=== PATIENT | female | born 1980 ===

== ENCOUNTER 2018-12-21 17:20 | Emergency (ER) | payer OTHER, SELFPAY ==
[2018-12-21 17:23] VITALS: BP 134/84; PULSE 97; RESP 16; TEMP 36.7; O2SAT 97
--- NOTE | 2018-12-21 17:28 | DI.RAD.S_ITS ---
PROCEDURE: XR KNEE LT 3V INDICATIONS: pain TECHNIQUE: 3 views of the knee were acquired. COMPARISON: None. FINDINGS: Bones: No fractures or dislocations. Tricompartmental osteoarthritis of the left knee. No suspicious bony lesions. Soft tissues: Moderate-sized joint effusion. No suspicious soft tissue calcifications. IMPRESSION: Tricompartmental osteoarthritis of the left knee with moderate size joint effusion. No acute fracture seen. Dictated by: Clifton Kim M.D. on 12/21/2018 at 18:58 Approved by: Clifton Kim M.D. on 12/21/2018 at 19:00
[2018-12-21 19:45] VITALS: BP 112/70; PULSE 67; RESP 17; O2SAT 100
--- NOTE | 2018-12-21 20:07 | ED_ITS ---
HPI - Extremity Injury (Lower) <FLO Shepherd - Last Filed: 12/21/18 21:48> General Chief Complaint: Extremity Injury, Lower Stated Complaint: Fall on ice, hurt L knee Time Seen by Provider: 12/21/18 18:23 Source: patient Mode of arrival: ambulatory Limitations: no limitations History of Present Illness HPI Narrative: Healthy 38-year-old female that is a nonsmoker for complaint of pain to her left knee. She states that she was picking up the kids earlier this afternoon when she slipped on the ice causing her to twist her knee as she fell. No known drug trauma to the knee itself. She reports increased pain with movement of the knee and ambulation. she reports increased pain more to the medial aspect of the left knee. She reports she was ambulatory into the emergency room although it was painful. She denies any head injury. No neck pain. No other concerns or complaints at this timeframe. MD complaint: knee injury Related Data Previous Rx's Medication Instructions Recorded nitrofurantoin monohyd/m-cryst 100 mg PO Q12H #14 bot 05/01/17 [Macrobid] Allergies Allergy/AdvReac Type Severity Reaction Status Date / Time amoxicillin [From Augmentin] Allergy Intermediate HIVES Unverified 02/08/18 11:54 aspartame Allergy Intermediate RASH/GI Unverified 02/08/18 11:54 ISSUES clavulanic acid Allergy Intermediate HIVES Unverified 02/08/18 11:54 [From Augmentin] Review of Systems <FLO Shepherd - Last Filed: 12/21/18 21:48> Constitutional Denies chills, Denies fever(s), Denies lethargy and Denies weakness Cardiovascular Denies chest pain, Denies irregular heart rhythm, Denies lightheadedness, Denies palpitations, Denies dyspnea, Denies dyspnea on exertion and Denies orthopnea Respiratory Denies cough, Denies dyspnea, Denies dyspnea on exertion and Denies wheezing Gastrointestinal Gastrointestinal: Denies abdominal pain, Denies change in bowel habits, Denies diarrhea, Denies nausea and Denies vomiting Genitourinary Denies hematuria, Denies flank pain, Denies urinary incontinence and Denies urinary urgency Musculoskeletal Comments: Left knee pain Integumentary/Breasts Denies pruritus, Denies erythema, Denies rash and Denies wounds Neurologic Denies confusion and Denies weakness Psychiatric Denies anxiety, Denies confusion, Denies depression, Denies homicidal ideation and Denies suicidal ideation Endocrine Denies palpitations Allergic/Immunologic Denies wheezing PFSH <FLO Shepherd - Last Filed: 12/21/18 21:48> Surgical History History of third molar tooth extraction Status post myringotomy with insertion of tube Social History Smoking Status: Never smoker Social History Smoking Status: Never smoker Exam <FLO Shepherd - Last Filed: 12/21/18 21:48> Initial Vital Signs Initial Vital Signs: Vital Signs Temperature 98.1 F 12/21/18 17:23 Pulse Rate 97 H 12/21/18 17:23 Respiratory Rate 16 12/21/18 17:23 Blood Pressure 134/84 12/21/18 17:23 Pulse Oximetry 97 12/21/18 17:23 Const General: cooperative and well developed Nutritional Appearance: well nourished Orientation: alert, awake, oriented x3 and not confused HENMT Mouth: oral mucosae normal and moist mucous membranes Eyes Conjunctivae: conjunctivae normal Sclera: sclerae normal Pupils: PERRL EOM: EOM intact bilaterally Resp Effort & Inspection: normal respiratory effort, able to speak in complete sentences, no respiratory distress and no use of accessory muscles Auscultation: clear to auscultation bilaterally, no rales, no rhonchi and no wheezes Cardio Rate: regular rate Rhythm: regular rhythm Heart Sounds: no click, no gallops, no murmurs and no rubs Pulses: normal peripheral pulses Skin General: no rashes or lesions noted, No jaundice and No petechiae Neuro General: alert, oriented x3, gait normal and no focal motor deficits Speech: speech normal Extrem Other: left knee with no significant signs of trauma. No ecchymosis. No swelling. Negative anterior-posterior drawer sign. Varus and valgus stress test shows some give to the medial aspect of the knee suggestive of MCL injury. distal sensation is intact. Distal range of motion is intact. Distal pulses are intact. <Lucia Salvador DO - Last Filed: 12/22/18 04:10> Initial Vital Signs Initial Vital Signs: Vital Signs Temperature 98.1 F 12/21/18 17:23 Pulse Rate 97 H 12/21/18 17:23 Respiratory Rate 16 12/21/18 17:23 Blood Pressure 134/84 12/21/18 17:23 Pulse Oximetry 97 12/21/18 17:23 Course <FLO Shepherd - Last Filed: 12/21/18 21:48> Orders Ordered: ED Orders 12/21/18 17:28 XR knee LT 3V Stat Vital Signs - 8 hr 12/21/18 17:23 12/21/18 19:45 Temperature 98.1 F Pulse Rate 97 H 67 Respiratory Rate 16 17 Blood Pressure 134/84 Blood Pressure [Left Arm] 112/70 Pulse Oximetry 97 100 <Lucia Salvador DO - Last Filed: 12/22/18 04:10> Orders Ordered: ED Orders 12/21/18 17:28 XR knee LT 3V Stat Vital Signs - 8 hr 12/21/18 17:23 12/21/18 19:45 Temperature 98.1 F Pulse Rate 97 H 67 Respiratory Rate 16 17 Blood Pressure 134/84 Blood Pressure [Left Arm] 112/70 Pulse Oximetry 97 100 MDM - Extremity Injury (Lower) <FLO Shepherd - Last Filed: 12/21/18 21:48> Imaging Data knee: Radiologist's impression: [place] [address] XRay Report Signed Patient: Francine Centeno LMR#: [id number] : 1980Acct:[id number] Age/Sex: 38 / FDate of Service: 12/21/18 Loc: ED Accession Number: [id number] Procedure: XR knee LT 3V Ordering Provider: Dimitrios Rodrigues D.O. PROCEDURE: XR KNEE LT 3V INDICATIONS: pain TECHNIQUE: 3 views of the knee were acquired. COMPARISON: None. FINDINGS: Bones: No fractures or dislocations. Tricompartmental osteoarthritis of the left knee. No suspicious bony lesions. Soft tissues: Moderate-sized joint effusion. No suspicious soft tissue calcifications. IMPRESSION: Tricompartmental osteoarthritis of the left knee with moderate size joint effusion. No acute fracture seen. Dictated by: Clifton Kim M.D. on 12/21/2018 at 18:58 Approved by: Clifton Kim M.D. on 12/21/2018 at 19:00 [facility] Narrative Medical decision making narrative: x-ray the left knee was obtained was negative for any fractures or dislocations. Will treat as a sprain however on exam some laxity was appreciated to the MCL on varus and valgus stress test. She is placed in knee immobilizer for comfort and support. Crutches for nonweightbearing. She is instructed to follow up with primary care provider next week for re-evaluation. Use [id number] Tylenol or Motrin as needed for any discomfort. Ice and elevation help with any swelling. May need to have MRI for further evaluation of pain does not resolve. Discharge Plan Departure Patient Disposition: Home Clinical Impression: Left knee sprain Qualifiers: Encounter type: initial encounter Involved ligament of knee: medial collateral ligament Qualified Code(s): S83.412A - Sprain of medial collateral ligament of left knee, initial encounter Discharge Date/Time: 12/21/18 20:35 Interventions: ED Discharge Assessment Last Done: 12/21/18 20:35 Instructions: DI for Knee Sprain Activity Restrictions/Additional Instructions: x-ray the left knee was obtained and was negative for any fractures or dislocations. Signs and symptoms presents as a sprain to the left knee. You are placed in a knee immobilizer for comfort and support along with crutches for nonweightbearing. Follow up with primary care provider next week for re- evaluation. Use [id number] Tylenol or Motrin as needed for any discomfort. Ice and elevation help with any swelling. If symptoms do not resolve may need to have MRI for further evaluation of the knee. for any worsening symptoms return to the emergency room. Prescriptions: No Action nitrofurantoin monohyd/m-cryst [Macrobid] 100 MG capsule 100 mg PO Q12H Qty: 14 RF: 0 Referrals: Patti Mendez MD [Primary Care Provider] - <Lucia Salvador DO - Last Filed: 12/22/18 04:10> Cosign ED Attending Cosarabellaature Attestation: I was immediately available in the department for consultation. This documentation has been reviewed and I agree with assessment and plan. Supervised by Lucia Salvador DO
== END 2018-12-21 20:35 | disposition home or self-care (01) ==
PROVIDERS: Emergency Provider Nurse Practitioner Family; PCP Obstetrics & Gynecology
DX: S83.412A Sprain of medial collateral ligament of left knee, initial encounter (principal); W01.0XXA Fall on same level from slipping, tripping and stumbling without subsequent striking against object, initial encounter
CPT/HCPCS: 73562; 99283

== ENCOUNTER 2019-12-10 06:33 | Emergency (ER) | payer OTHER, SELFPAY ==
[2019-12-10 06:43] VITALS: BP 132/80; PULSE 74; RESP 18; TEMP 36.8; O2SAT 100; BMI 29.1
--- NOTE | 2019-12-10 07:15 | ED_ITS ---
HPI - General Adult General Stated complaint: heart issues Time Seen by Provider: 12/10/19 06:54 Source: patient Mode of arrival: Ambulatory Limitations: no limitations History of Present Illness HPI narrative: 39-year-old otherwise healthy female here for evaluation of several weeks of palpitations. She has talk with her primary provider about this. She has an appointment with Cardiology coming up in the next 7-10 days for this issue. She was told by her primary provider that if the symptoms of her came back she should come to the emergency department. States that last evening she had more the events. States they all last less than 1 minute. No chest pain. No shortness of breath. Has not passed out. Has not tried anything for symptoms prior to Related Data Previous Rx's Medication Instructions Recorded nitrofurantoin monohyd/m-cryst 100 mg PO Q12H #14 bot 05/01/17 [Macrobid] Allergies Allergy/AdvReac Type Severity Reaction Status Date / Time amoxicillin [From Augmentin] Allergy Intermediate HIVES Unverified 02/08/18 11:54 aspartame Allergy Intermediate RASH/GI Unverified 02/08/18 11:54 ISSUES clavulanic acid Allergy Intermediate HIVES Unverified 02/08/18 11:54 [From Augmentin] Review of Systems Constitutional Constitutional: Denies fever(s) and Denies headache(s) ENT Ears, Nose, Mouth, and Throat: Denies headache(s) Cardiovascular Cardiovascular: Denies chest pain, Denies leg edema, Reports palpitations and Denies dyspnea Respiratory Respiratory: Denies cough and Denies dyspnea Gastrointestinal Gastrointestinal: Denies abdominal pain, Denies nausea and Denies vomiting Integumentary/Breasts Skin/Breast: Denies lesions and Denies rash Neurologic Neurologic: Denies behavioral changes and Denies headache(s) Psychiatric Psychiatric: Denies behavioral changes and Denies depression Endocrine Endocrine: Reports palpitations Patient History Medical History ACUTE BRONCHITIS, UNSPECIFIED (Inactive) Presence of intrauterine contraceptive device (07/08/15) Surgical History History of third molar tooth extraction Status post myringotomy with insertion of tube Social History Smoking Status: Never smoker Smoking Status: Never smoker alcohol intake frequency: 0-2 drinks per day Substance Use Type: does not use Exam Const General: cooperative, comfortable and well developed Limitations: mental status not altered HENMT Head: normal to inspection and normocephalic Resp Effort & Inspection: normal respiratory effort Auscultation: clear to auscultation bilaterally Cardio Rate: regular rate Rhythm: regular rhythm Pulses: radial pulses present Skin Lesions: no lesions Rashes: no rashes Neuro General: alert, awake and oriented x3 Cognition: normal cognition Speech: speech normal Extrem General: normal to inspection and capillary refill normal Psych Appearance: grossly normal and well kempt Course Orders Ordered: ED Orders 12/10/19 EKG-12 Lead Stat Medical Decision Making ECG Data Attestation: I personally reviewed and interpreted this ECG as follows: Prior ECG tracings: not available for review Interpretation: Sinus rhythm Ventricular rate is 67 Normal axis Normal QRS Normal QTC No ST T wave changes MDM Narrative Medical decision making narrative: Patient without symptoms here in the ER. EKG is unremarkable. Normal QRS, normal QTC. Unremarkable vital signs. Heart rate in the 70s. Did discuss the patient that she should talk with her primary doctor and also the trade show manager about how Holter monitor. We discussed return precautions and follow-up instructions. She expressed understanding and agreement plan. Discharge Plan Departure Patient Disposition: Home Clinical Impression: Palpitations Instructions: DI for Palpitations Activity Restrictions/Additional Instructions: Recommend that you talk with your primary doctor and also the trade show manager about a Holter monitor. Return to the emergency department for any chest pain, shortness of breath, palpitations that do not go way, passing out or any other new or worsening symptoms Prescriptions: No Action nitrofurantoin monohyd/m-cryst [Macrobid] 100 MG capsule 100 mg PO Q12H Qty: 14 RF: 0 Referrals: Luana Kunz ND [Primary Care Provider] -
[2019-12-10 07:56] VITALS: BP 140/79; PULSE 78; RESP 18; O2SAT 98
== END 2019-12-10 07:55 | disposition home or self-care (01) ==
PROVIDERS: Emergency Provider Emergency Medicine; PCP Naturopath
DX: R00.2 Palpitations (principal)
CPT/HCPCS: 93005; 99282; 99283

== ENCOUNTER → 2019-12-20 14:13 | Outpatient (CLI) | payer OTHER, SELFPAY ==
[2019-12-20 15:20] LABS: Add Manual Diff / Slide Review NO; Basophils Absolute Auto 0 /uL (0-100); Basophils Percent Auto 0.3 % (0-2); Eosinophils Absolute Auto 100 /uL (0-450); Eosinophils Percent Auto 1.2 % (2-4); Lymphocytes Absolute Auto 2900 /uL (1100-4500); Lymphocytes Percent Auto 33.1 % (25-40); Mean Corpuscular Hemoglobin 31.4 PG (26-34); Mean Corpuscular Volume 89.9 fL (80-100); Monocytes Absolute Auto 600 /uL (0-900); Monocytes Percent Auto 6.5 % (3-14); Neutrophils Absolute Auto 5100 /uL (1500-7000); Neutrophils Percent Auto 58.9 % (50-75); Platelet Count 305 X10^3/uL (150-400); Red Blood Cell Count 4.44 X10^6/uL (4.0-5.2); Red Cell Distribution Width 13.5 % (11.6-14.8); White Blood Cell Count 8.6 X10^3/uL (4.5-11.0)
[2019-12-20 15:31] LABS: Alanine Aminotransferase 12 IU/L (<35); Albumin Globulin Ratio 1.5 (1.0-2.8); Alkaline Phosphatase 66 U/L (38-126); Aspartate Aminotransferase 25 IU/L (14-36); BUN Creatinine Ratio 12.9 (6-22); Bilirubin Total 0.5 mg/dL (0.2-1.3); Blood Urea Nitrogen 9 mg/dL (7-17); Calcium 9.9 mg/dL (8.4-10.2); Carbon Dioxide 25 mmol/L (22-32); Chloride 104 mmol/L (98-107); Estimated Glomerular Filt Rate > 60.0 mL/min (>60); Globulin 3.4 g/dL (1.7-4.1); Glucose 112 mg/dL (70-100); HEMOLYSIS < 15 (0-50); Sodium 139 mmol/L (137-145); Total Protein 8.4 g/dL (6.3-8.2)
[2019-12-20 16:22] LABS: Thyroid Stimulating Hormone 1.48 uIU/mL (0.47-4.68)
== END ==
PROVIDERS: PCP Naturopath; Referring Provider Internal Medicine Cardiovascular Disease; Visit Provider Internal Medicine Cardiovascular Disease
DX: R00.0 Tachycardia, unspecified (principal); R00.2 Palpitations
CPT/HCPCS: 36415; 80053; 84443; 85025

== ENCOUNTER → 2020-09-26 14:08 | Outpatient (CLI) | payer OTHER, SELFPAY ==
--- NOTE | 2020-09-26 | DI.US.S_ITS ---
PROCEDURE: US ABDOMEN LIMITED INDICATIONS: Center mass superior to naval TECHNIQUE: Real-time focused scanning was performed of the abdomen, with image documentation. COMPARISON: None. FINDINGS: Hyperechoic, avascular mass present within the soft tissues corresponding to the palpable abnormality measuring 1.0 x 1.1 x 1.2 cm. IMPRESSION: Nonspecific avascular soft tissue mass. This could represent a small area of fat necrosis, hematoma, or lipoma, and less likely malignant etiology. Recommend continued clinical surveillance. This could be further characterized with MRI. Ultrasound guided biopsy could also be performed especially if enlarging or painful. Dictated by: Enrique RINALDI Interpreted: Medhat Mesa MD on 09/26/2020 at 15:16 Approved by: Medhat Mesa M.D. on 09/26/2020 at 15:31
== END ==
PROVIDERS: PCP Naturopath; Referring Provider Nurse Practitioner Adult Health; Visit Provider Nurse Practitioner Adult Health
DX: R19.09 Other intra-abdominal and pelvic swelling, mass and lump (principal); I47.1 Supraventricular tachycardia; E66.3 Overweight
CPT/HCPCS: 76705

== ENCOUNTER → 2024-10-08 07:49 | Outpatient (CLI) | payer OTHER, SELFPAY ==
--- NOTE | 2024-10-08 08:03 | DI.RAD.S_ITS ---
PROCEDURE: XR CHEST 2V INDICATIONS: Cough TECHNIQUE: 2 views of the chest were acquired. COMPARISON: [facility], , CHEST 2 VIEW, 11/02/2015, 11:39. FINDINGS: Surgical changes and devices: None. Lungs and pleura: Slight appearance of increased opacity within the right base. Mediastinum: Mediastinal contours are normal. Heart size is normal. Bones and chest wall: No suspicious bony abnormalities. Soft tissues appear unremarkable. IMPRESSION: Slight increased right basilar opacity suspicious for developing pneumonia. Dictated by: Chelsie Mario M.D. on 10/08/2024 at 11:20 Approved by: Chelsie Mario M.D. on 10/08/2024 at 11:20
== END ==
PROVIDERS: PCP Naturopath; Referring Provider Nurse Practitioner Family; Visit Provider Nurse Practitioner Family
DX: J02.9 Acute pharyngitis, unspecified (principal); R05.9 Cough, unspecified; R91.8 Other nonspecific abnormal finding of lung field
CPT/HCPCS: 71046; 87070

== ENCOUNTER → 2024-11-23 09:32 | Outpatient (CLI) | payer OTHER, SELFPAY ==
--- NOTE | 2024-11-23 09:34 | DI.RAD.S_ITS ---
PROCEDURE: XR ANKLE RT MIN 3V INDICATIONS: Right foot and ankle injury TECHNIQUE: 3 views of the ankle were acquired. COMPARISON: None. FINDINGS: Bones: Partially visualized fracture through the base of the 5th metatarsal seen on the lateral view. Ankle mortise is normally aligned. No suspicious bony lesions. Soft tissues: No tibiotalar joint effusion. Achilles tendon appears normal. IMPRESSION: The right ankle appears normal. See dedicated x-ray of the right foot for additional details regarding the base of 5th metatarsal fracture. Dictated by: Maxim Smith M.D. on 11/23/2024 at 10:17 Approved by: Maxim Smith M.D. on 11/23/2024 at 10:23
--- NOTE | 2024-11-23 09:34 | DI.RAD.S_ITS ---
PROCEDURE: XR FOOT RT MIN 3V INDICATIONS: Right foot and ankle injury TECHNIQUE: 3 views of the foot were acquired. COMPARISON: None. FINDINGS: Bones: Mildly comminuted nondisplaced fracture through the base of the right 5th metatarsal No dislocations. No suspicious bony lesions. Soft tissues: No tibiotalar joint effusion. Achilles tendon appears normal. IMPRESSION: Mildly comminuted nondisplaced Bose fracture through the right 5th metatarsal base. Dictated by: Maxim Smith M.D. on 11/23/2024 at 10:23 Approved by: Maxim Smith M.D. on 11/23/2024 at 10:25
== END ==
PROVIDERS: PCP Naturopath; Referring Provider Physician Assistant Surgical; Visit Provider Physician Assistant Surgical
DX: S92.354A Nondisplaced fracture of fifth metatarsal bone, right foot, initial encounter for closed fracture (principal); S99.911A Unspecified injury of right ankle, initial encounter; S99.921A Unspecified injury of right foot, initial encounter
CPT/HCPCS: 73610; 73630

== ENCOUNTER → 2025-08-07 11:42 | Outpatient (CLI) | payer OTHER, SELFPAY ==
--- NOTE | 2025-08-07 11:44 | DI.RAD.S_ITS ---
PROCEDURE: XR FINGER RT MIN 2V INDICATIONS: Injury. r/o fracture TECHNIQUE: AP view of the hand and two views of the right thumb. COMPARISON: None. FINDINGS: Bones: No fractures or dislocations. No suspicious bony lesions. Joint spaces are maintained. Soft tissues: No suspicious soft tissue calcifications. IMPRESSION: No acute bony abnormality. Dictated by: Remberto Sloan M.D. on 08/07/2025 at 12:09 Approved by: Remberto Sloan M.D. on 08/07/2025 at 12:10
== END ==
PROVIDERS: PCP Naturopath; Referring Provider Chiropractor; Visit Provider Chiropractor
DX: S60.011A Contusion of right thumb without damage to nail, initial encounter (principal); X58.XXXA Exposure to other specified factors, initial encounter
CPT/HCPCS: 73140